=== PATIENT | male | born 1980 | race Caucasian/White ===

== ENCOUNTER 2017-12-11 18:52 | Emergency (ER) | payer OTHER ==
[2017-12-11 21:20] VITALS: BP 128/82
[2017-12-11] MEDS ORDERED: Albuterol 2.5 MG/3 ML NEB.SOL* (0.083%) INH ONE (21:54)
--- NOTE | 2017-12-11 22:00 | UC ---
UC General HPI - HPI Summary HPI Summary: pt c/o fever to 102 with sore throat, L ear pain, bodyaches and headache. both children have the flu plus one has strep trhoat. - History of Current Complaint Chief Complaint: UCGeneralIllness Stated Complaint: CONGESTION, ST Time Seen by Provider: 12/11/17 21:24 Hx Obtained From: Patient Onset/Duration: Gradual Onset, Lasting Days - 3-4 Timing: Constant Onset Severity: Moderate Current Severity: Moderate Pain Intensity: 6 Associated Signs & Symptoms: Positive: Cough, Fever, Headache, Wheezing. Negative: SOB - Allergy/Home Medications Allergies/Adverse Reactions: Allergies Allergy/AdvReac Type Severity Reaction Status Date / Time BEES Allergy Severe Anaphylatic Uncoded 12/11/17 21:20 Shock PMH/Surg Hx/FS Hx/Imm Hx Previously Healthy: Yes - Surgical History Surgical History: Yes Surgery Procedure, Year, and Place: APPENDECTOMY, HERNIA REPAIR - Social History Occupation: Employed Full-time Lives: With Family Alcohol Use: Rare Substance Use Type: None Smoking Status (MU): Heavy Every Day Tobacco Smoker Type: Cigarettes Amount Used/How Often: 1/2 ppd Length of Time of Smoking/Using Tobacco: 22 YEARS Have You Smoked in the Last Year: Yes Review of Systems Constitutional: Fever Skin: Negative Eyes: Negative ENT: Sore Throat, Ear Ache, Sinus Congestion Respiratory: Cough Cardiovascular: Negative Gastrointestinal: Negative Genitourinary: Negative Motor: Negative Neurovascular: Negative Neurological: Headache Is Patient Immunocompromised?: No All Other Systems Reviewed And Are Negative: Yes Physical Exam Triage Information Reviewed: Yes Appearance: Well-Appearing Vital Signs: Initial Vital Signs Temp 98.5 F 12/11/17 21:16 Pulse 65 12/11/17 21:16 Resp 17 12/11/17 21:16 BP 128/82 12/11/17 21:16 Pulse Ox 99 12/11/17 21:16 Vital Signs Reviewed: Yes Eye Exam: Normal ENT: Positive: Pharyngeal erythema, Nasal drainage - clear, TMs normal, Uvula midline. Negative: Tonsillar swelling, Tonsillar exudate, Trismus, Muffled voice, Hoarse voice, Sinus tenderness Neck: Positive: Supple, Nontender, No Lymphadenopathy Respiratory: Positive: Normal breath sounds, No respiratory distress, Wheezing Cardiovascular: Positive: RRR, No Murmur Abdomen Description: Positive: Nontender, No Organomegaly, Soft Bowel Sounds: Positive: Present Neurological Exam: Normal Psychological: Positive: Age Appropriate Behavior Diagnostics - Laboratory Diagnostic Studies Completed/Ordered: rapid flu and strep screen are neg. Course/Dx - Course Course Of Treatment: rapid strep and flu=neg; however, hx and pe suggest LORRAINE thus will tx with tamiflu as both children have flu. will tx bronchospasm with albuterol. nothing to suggest bacterial infection or pneumonia. Aeration improved and wheezing nearly resolved post neb tx. nothing focal to suggest pneumonia. - Differential Dx - Multi-Symptom Provider Diagnoses: Influenza like illness. Bronchospasm. Discharge - Discharge Plan Condition: Stable Disposition: HOME Prescriptions: Albuterol HFA INHALER* [Ventolin HFA Inhaler*] 2 puff INH Q6H 14 Days #1 mdi Oseltamivir Phosphate [Tamiflu] 75 mg PO BID 5 Days #10 capsule Patient Education Materials: Influenza (ED), Bronchospasm (ED) Referrals: No Primary Care Phys,NOPCP [Primary Care Provider] - SAM Boucher [[employer], APPLICATION, OTHER] - 5 Days
== END 2017-12-11 22:42 | disposition home or self-care (01) ==
LOC: UCCORT 18:52
DX: J11.1 Influenza due to unidentified influenza virus with other respiratory manifestations (principal); Z91.030 Bee allergy status; Z87.891 Personal history of nicotine dependence
CPT/HCPCS: 87502; 87651; 99212; G0463

== ENCOUNTER 2018-02-04 12:37 | Emergency (ER) | payer OTHER ==
--- NOTE | 2018-02-04 12:57 | UC ---
Dental HPI - HPI Summary HPI Summary: pt c/o bad tooth for a long time. the tooth recently aches, 02/01/18. he has an appt with [facility] 02/19 unless there is a cancelation. no fever or swelling. - History of Current Complaint Stated Complaint: TOOTH PAIN Time Seen by Provider: 02/04/18 12:46 Hx Obtained From: Patient Onset/Duration: Gradual Onset Severity: Severe Aggravating Factor(s): Heat, Cold, Chewing Alleviating Factor(s): OTC Meds - Allergies/Home Medications Allergies/Adverse Reactions: Allergies Allergy/AdvReac Type Severity Reaction Status Date / Time bee venom protein (honey bee) Allergy Anaphylatic Verified 02/04/18 13:10 Shock BEES Allergy Severe Anaphylatic Uncoded 02/04/18 13:06 Shock Home Medications: Home Medications Acetaminophen 2 tab PO ONCE PRN 02/04/18 [History Confirmed 02/04/18] PMH/Surg Hx/FS Hx/Imm Hx Cardiovascular History: Hypertension - does not tx - Surgical History Surgical History: Yes Surgery Procedure, Year, and Place: APPENDECTOMY, HERNIA REPAIR - Family History Known Family History: Positive: None - Social History Occupation: Employed Full-time Lives: With Family Alcohol Use: Rare Substance Use Type: None Smoking Status (MU): Heavy Every Day Tobacco Smoker Type: Cigarettes Amount Used/How Often: 1/2 ppd Length of Time of Smoking/Using Tobacco: 22 YEARS Have You Smoked in the Last Year: Yes - Immunization History Vaccination Up to Date: Yes Review of Systems Constitutional: Negative Skin: Negative Eyes: Negative ENT: Dental Pain Respiratory: Negative Cardiovascular: Negative Gastrointestinal: Negative Genitourinary: Negative Motor: Negative Neurovascular: Negative Musculoskeletal: Negative Neurological: Negative Psychological: Negative Is Patient Immunocompromised?: No All Other Systems Reviewed And Are Negative: Yes Physical Exam Triage Information Reviewed: Yes Appearance: Well-Appearing Vital Signs Reviewed: Yes Eyes: Positive: Conjunctiva Clear ENT: Positive: Pharynx normal, TMs normal. Negative: Nasal congestion, Nasal drainage Dental: Positive: Percussion Tenderness @ - L lower posterior molar, Gross Decay /Caries @ - L lower posterior molar, Other: - Mild erythema gum [place] to L lower posterior molar but not fluctuant Neck: Positive: Supple, Nontender, No Lymphadenopathy Respiratory: Positive: Lungs clear, Normal breath sounds Cardiovascular: Positive: RRR, No Murmur Abdomen Description: Positive: Nontender, No Organomegaly, Soft Bowel Sounds: Positive: Present Musculoskeletal: Positive: ROM Intact Neurological: Positive: Alert Psychological: Positive: Age Appropriate Behavior Skin Exam: Normal Dental Complaint Course/Dx - Course Course Of Treatment: no abscess, c/w decay and local gum infection. has dental f /u will tx nsaid and antibiotic - Differential Dx/Diagnosis Provider Diagnoses: L lower posterior molar pain/ decay/ gum infection Discharge - Sign-Out/Discharge Documenting (check all that apply): Discharge - Discharge Plan Condition: Stable Disposition: HOME Prescriptions: Amoxicillin PO (*) [Amoxicillin 875 MG (*)] 875 mg PO BID #20 tab Naproxen [Naprosyn] 500 mg PO BID #14 tablet Patient Education Materials: Toothache (ED), Dental Abscess (ED) Referrals: No Primary Care Phys,NOPCP [Primary Care Provider] - Additional Instructions: FOLLOW UP [facility] SCHEDULED THIS MONTH OR SOONER IF POSSIBLE - Billing Disposition and Condition Condition: STABLE Disposition: HOME
[2018-02-04 13:10] VITALS: BP 122/77
== END 2018-02-04 13:21 | disposition home or self-care (01) ==
LOC: UCCORT 12:37
DX: K02.9 Dental caries, unspecified (principal); F17.210 Nicotine dependence, cigarettes, uncomplicated; K05.10 Chronic gingivitis, plaque induced
CPT/HCPCS: 99212; G0463

== ENCOUNTER 2019-05-03 19:54 | Emergency (ER) | payer OTHER ==
[2019-05-03 20:43] VITALS: BP 150/87
[2019-05-03] MEDS ORDERED: Clindamycin CAP* 150 MG PO ONE (20:54)
--- NOTE | 2019-05-03 20:56 | UC ---
Dental HPI - HPI Summary HPI Summary: 39-year-old male comes in with a chief complaint of dental pain. Patient has multiple caries and is having worse pain in the right lower molars. He feels like is an infection there. No fevers chills no difficulty swallowing or breathing. Pain is worse with chewing. Naproxen does help some with the pain. - History of Current Complaint Chief Complaint: UCDentalProblem Stated Complaint: DENTAL PAIN,RIGHT EAR PAIN Time Seen by Provider: 05/03/19 20:46 Pain Intensity: 6 - Allergies/Home Medications Allergies/Adverse Reactions: Allergies Allergy/AdvReac Type Severity Reaction Status Date / Time bee venom protein (honey bee) Allergy Anaphylatic Verified 05/03/19 20:39 Shock BEES Allergy Severe Anaphylatic Uncoded 05/03/19 20:39 Shock PMH/Surg Hx/FS Hx/Imm Hx Previously Healthy: Yes - Surgical History Surgical History: Yes Surgery Procedure, Year, and Place: APPENDECTOMY, HERNIA REPAIR - Family History Known Family History: Positive: None - Social History Alcohol Use: None Substance Use Type: None Smoking Status (MU): Heavy Every Day Tobacco Smoker Type: Cigarettes Amount Used/How Often: 2 ppd Length of Time of Smoking/Using Tobacco: 22 YEARS Have You Smoked in the Last Year: Yes - Immunization History Vaccination Up to Date: Yes Review of Systems All Other Systems Reviewed And Are Negative: Yes Constitutional: Positive: Negative Skin: Positive: Negative Eyes: Positive: Negative ENT: Positive: Dental Pain Respiratory: Positive: Negative Cardiovascular: Positive: Negative Gastrointestinal: Positive: Negative Motor: Positive: Negative Neurovascular: Positive: Negative Musculoskeletal: Positive: Negative Neurological: Positive: Negative Psychological: Positive: Negative Is Patient Immunocompromised?: No Physical Exam Triage Information Reviewed: Yes Appearance: Well-Appearing, No Pain Distress, Well-Nourished Vital Signs: Initial Vital Signs Temp 98.4 F 05/03/19 20:39 Pulse 92 05/03/19 20:39 Resp 16 05/03/19 20:39 BP 150/87 05/03/19 20:39 Pulse Ox 97 05/03/19 20:39 Vital Signs Reviewed: Yes Eye Exam: Normal Eyes: Positive: Conjunctiva Clear ENT: Positive: Pharynx normal Dental: Positive: Gross Decay/Caries @ - RT LOWER MOLARS Neck: Positive: Supple Respiratory: Positive: No respiratory distress Musculoskeletal: Positive: Strength Intact, ROM Intact Neurological: Positive: Alert, Muscle Tone Normal Psychological: Positive: Age Appropriate Behavior Skin Exam: Normal Dental Complaint Course/Dx - Differential Dx/Diagnosis Provider Diagnosis: Pain, dental Discharge - Sign-Out/Discharge Documenting (check all that apply): Patient Departure All imaging exams completed and their final reports reviewed: No Studies - Discharge Plan Condition: Stable Disposition: HOME Prescriptions: Clindamycin Cap(NF) [Clindamycin Cap 300 mg Cap(NF)] 300 mg PO Q6H #38 cap Patient Education Materials: Toothache (ED) Referrals: [facility] [place] [facility] REFERRAL [Outside] Additional Instructions: FOLLOW UP WITH YOUR DENTIST. GET REEVALUATED SOONER IF WORSE OR ANY QUESTIONS OR CONCERNS. - Billing Disposition and Condition Condition: STABLE Disposition: Home
== END 2019-05-03 21:07 | disposition home or self-care (01) ==
LOC: UCCORT 19:54
DX: K08.89 Other specified disorders of teeth and supporting structures (principal); F17.210 Nicotine dependence, cigarettes, uncomplicated
CPT/HCPCS: 99212; A9270-GY; G0463